=== PATIENT | female | born 1970 | race Caucasian/White ===

== ENCOUNTER 2020-11-25 12:59 | Emergency (ER) | payer SELFPAY ==
[~2020-11-25] VITALS: Ht 152.4 cm; Wt 63.5 kg
[2020-11-25 13:19] VITALS: BP 119/71
--- NOTE | 2020-11-25 13:22 | NUR ---
PT TO AWAIT IN TENT
--- NOTE | 2020-11-25 13:47 | NUR ---
DR. MCNEAL EVALUATING PT
[2020-11-25] MEDS ORDERED: IBUPROFEN 600 MG TAB PO ONE (13:55)
[2020-11-25] MEDS ORDERED: CARBAMIDE PEROXIDE 6.5% OT 15 ML BTL OT ONE (13:55)
--- NOTE | 2020-11-25 13:56 | NUR ---
PT AMBULATED TO BED
--- NOTE | 2020-11-25 14:00 | NUR ---
50 y/o F BIB self from home with c/c Left ear pain + headache x 1 day. Patient A&Ox4, ambulatory, reports 6/10, aching/constant, non-radiating pain. Patient states diminished hearing to left ear. Patient states Tylenol with minor relief. Denies fever, chills, nausea, vomiting, diarrhea, SOB, chest pain, dizziness. Bed locked in lowest position, side rails x1. PMH/Sx/Meds: Denies NKA
--- NOTE | 2020-11-25 14:10 | NUR ---
Elier peacock sample collected, walked to lab and handed to CPT. Sammi
--- NOTE | 2020-11-25 14:10 | NUR ---
EMT at bedside for Left ear irrigation
--- NOTE | 2020-11-25 14:10 | NUR ---
PT L EAR IRRIGATED WITH WATER AND HYDROGEN PEROXIDE. AFTER APPROXIMATELY 400 ML USED, PT STATED SHE FELT RELIEF AND THAT THEY COULD HEAR BETTER.
--- NOTE | 2020-11-25 14:37 | NUR ---
Patient reports no more pain after ear irrigation and Motrin. Rates 0/10.
[2020-11-25 15:40] VITALS: BP 116/74
--- NOTE | 2020-11-25 16:02 | NUR ---
Dr. Altamirano is evaluating patient at bedside.
--- NOTE | 2020-11-25 16:35 | NUR ---
Patient discharged with v/s stable. Written and verbal after care instructions given and explained. Patient verbalized understanding. Ambulatory with steady gait. All questions addressed prior to discharge. Advised to follow up with PMD. work note provided.
== END 2020-11-25 16:55 | disposition home or self-care (01) ==
LOC: MED 12:59
DX: H92.02 Otalgia, left ear (principal); H61.22 Impacted cerumen, left ear; R73.9 Hyperglycemia, unspecified; Z20.822 Contact with and (suspected) exposure to COVID-19
CPT/HCPCS: 69209; 81002; 99283; U0003